=== PATIENT | male | born 1960 | race Caucasian/White ===

== ENCOUNTER 2016-08-24 03:02 | Emergency (ER) | payer OTHER ==
--- NOTE | 2016-08-24 03:10 | EDPHY ---
H & P HPI/ROS: HPI CHIEF COMPLAINT: Syncope versus seizure, marijuana intoxication HISTORY OF PRESENT ILLNESS: This patient very pleasant 56-year-old male significant past medical history for hypertension, presents emergency room by EMS after his called 911 after he had a questionable seizure activity in the bathroom versus syncope. Patient tells me that woke up around 130 in the morning he could not sleep he went to the bathroom sat down on the toilet to urinate, He laid his phone on the counter next to him, took multiple hits of his vape pen which has marijuana. Tells me the got rather high felt very lightheaded he went to stand up knocked the phone off of his vanity onto the ground he bent over from the seated position off the toilet to warehouse order picker the phone and got extremely lightheaded passed out fell and laid on the ground. Denies significant head strike. His did come in cm she did endorse a brief period of upper body myoclonic jerks and eye rolling in the back of his head. She states there was no postictal state he was not confused after this brief episode resolved. There was no biting of the tongue, no bowel bladder incontinence. Denies any trauma. Upon arrival here in the emergency room by EMS he has no complaints he does tell me that he does feel high slightly lightheaded. He denies chest pain, palpitation, shortness of breath he denies any preceding symptoms to this syncopal event except for lightheadedness. He does admit to a positive LOC. he also tells me that he did have multiple beers throughout the day today. He did exercise on a exercise bike. He tells me he did try to increase his fluid intake today. Of note he did tell me that he had 1 other episode of the same type of symptoms in this summer at a concert where was very hot out any smoked marijuana drink alcohol. Past Medical History: Hypertension Past Surgical History: Denies significant surgical history Social History: denies use of illicit drugs except for occasional marijuana use , he usually takes marijuana at of his vape pen to go to sleep, endorses occasional alcohol use Family History: Noncontributory ROS REVIEW OF SYSTEMS: A comprehensive 10 point review of systems is otherwise negative aside from elements mentioned in the history of present illness. Exam Constitutional appears well nontoxic, triage nursing summary reviewed, vital signs reviewed, awake/alert. Eyes normal conjunctivae and sclera, EOMI, PERRLA. HENT normal inspection, atraumatic, moist mucus membranes, no epistaxis, neck supple/ no meningismus, no raccoon eyes. Respiratory clear to auscultation bilaterally, normal breath sounds, no respiratory distress, no wheezing. Cardiovascular rate normal, regular rhythm, no murmur, no edema, distal pulses normal. Gastrointestinal soft, non-tender, no rebound, no guarding, normal bowel sounds, no distension, no pulsatile mass. Genitourinary no CVA tenderness. Musculoskeletal no midline vertebral tenderness, full range of motion, no calf swelling, no tenderness of extremities, no meningismus, good pulses, neurovascularly intact. Skin pink, warm, & dry, no rash, skin atraumatic. Neurologic awake, alert and oriented x 3, AAOx3, moves all 4 extremities equally, motor intact, sensory intact, CN II-XII intact, normal cerebellar, normal vision, normal speech. Psychiatric normal mood/affect. Heme/Lymph/Immune no lymphadenopathy. Differential Diagnosis: includes but is not limited to in a particular order, vasovagal syncope, orthostatic syncope, dehydration, marijuana intoxication, mixed duration syncope, cardiac arrhythmia, doubt ACS, doubt CVA, doubt intracranial bleed Medical Decision Making: this patient be worked up for seizure versus syncope patient had an EKG, chest x-ray, he will have an IV established will receive an IV fluid bolus will check electrolytes, he will be placed on diagnostic cardiac sonographer rule out arrhythmia Re-evaluation: EKG interpretation by me on record in [employer] system. Impression time of EKG 3:25 a.m. this is sinus rhythm rate of 75 there is left axis deviation present. Isolated subtle T-wave inversion in leads 3 AVF otherwise unremarkable , no ST elevation, no ST depression no signs of cardiac arrhythmia. Intervals appropriate. CT scan of the head without IV contrast The results of the study are negative for acute bleed or trauma or tumor. The study was read by Dr. Andersen I viewed the images myself on the PACS system. ED x-ray chest one view: Negative for acute cardiopulmonary disease. Image interpreted by myself. 0455: re-examination at this time this patient is resting comfortably no acute distress. He feels fine. He tells me he would like to go home and go to sleep. He denies chest pain or shortness of breath palpitations lightheadedness dizziness headache nausea vomiting at this time. He ambulated well throughout the emergency room without any difficulty specifically did not get lightheaded not develop chest pain or shortness of breath. He feels comfortable going home most likely cause of syncope is either micturition syncope with vasovagal syncope quick positional changes after getting up out of bed to use the bathroom , seated position while smoking marijuana dehydration alcohol this evening. He understands stay well-hydrated return to the emergency room if develops chest pain, shortness of breath, dizziness, lightheadedness, or he has a syncopal episode at home. Understands this been discussed with his at bedside. Source: Patient, EMS Constitutional: Initial Vital Signs Temperature (C) 36.5 C 08/24/16 03:05 Heart Rate 78 08/24/16 03:05 Respiratory Rate 18 08/24/16 03:05 Blood Pressure 149/68 H 08/24/16 03:05 O2 Sat (%) 98 08/24/16 03:05 O2 Delivery Mode Room Air O2 (L/minute) 2 Allergies/Adverse Reactions: No Known Allergies Allergy (Unverified 08/24/16 03:15) Home Medications: Medication Instructions Recorded Lisinopril-Hctz 10-12.5 mg Tab 08/24/16 Medical Decision Making - Data Points Laboratory Results: Laboratory Results 08/24/16 03:10 08/24/16 03:10 08/24/16 03:10 WBC 8.38 10^3/uL (3.80-9.50) RBC 5.15 10^6/uL (4.40-6.38) Hgb 16.5 g/dL (13.7-17.5) Hct 47.0 % (40.0-51.0) MCV 91.3 fL (81.5-99.8) MCH 32.0 pg (27.9-34.1) MCHC 35.1 g/dL (32.4-36.7) RDW 11.6 % (11.5-15.2) Plt Count 215 10^3/uL (150-400) MPV 9.5 fL (8.7-11.7) Neut % (Auto) 56.1 % (39.3-74.2) Lymph % (Auto) 33.2 % (15.0-45.0) [place] % (Auto) 7.5 % (4.5-13.0) Eos % (Auto) 1.6 % (0.6-7.6) Baso % (Auto) 1.1 % (0.3-1.7) Nucleat RBC Rel Count 0.0 % (0.0-0.2) Absolute Neuts (auto) 4.71 10^3/uL (1.70-6.50) Absolute Lymphs (auto) 2.78 10^3/uL (1.00-3.00) Absolute Monos (auto) 0.63 10^3/uL (0.30-0.80) Absolute Eos (auto) 0.13 10^3/uL (0.03-0.40) Absolute Basos (auto) 0.09 10^3/uL (0.02-0.10) Absolute Nucleated RBC 0.00 10^3/uL (0-0.01) Immature Gran % 0.5 % (0.0-1.1) Immature Gran # 0.04 10^3/uL (0.00-0.10) PT 12.7 SEC (12.0-15.0) INR 0.96 (0.83-1.16) APTT 24.6 SEC (23.0-38.0) Sodium 142 mEq/L (134-144) Potassium 4.1 mEq/L (3.5-5.2) Chloride 104 mEq/L (97-110) Carbon Dioxide 26 mEq/l (22-31) Anion Gap 12 mEq/L (8-16) BUN 22 mg/dL (7-23) Creatinine 1.3 mg/dL (0.7-1.3) Estimated GFR 57 Glucose 113 H mg/dL (70-100) Calcium 9.2 mg/dL (8.5-10.4) Magnesium 2.1 mg/dL (1.6-2.3) Total Bilirubin 0.6 mg/dL (0.1-1.4) Conjugated Bilirubin 0.3 mg/dL (0.0-0.5) Unconjugated Bilirubin 0.3 mg/dL (0.0-1.1) AST 26 IU/L (17-59) ALT 44 IU/L (21-72) Alkaline Phosphatase 71 IU/L (38-126) Creatine Kinase 282 H IU/L (0-224) CK-MB (CK-2) Fraction 3.96 H ng/mL (0-3.19) CK-MB (CK-2) % 1.4 % (0.0-4.0) Creatine Kinase Interp NEGATIVE (NEGATIVE) Troponin I 0.025 ng/mL (0-0.034) NT-Pro-B Natriuret Pep 437 H pg/mL (0-125) Total Protein 6.8 g/dL (6.3-8.2) Albumin 4.5 g/dL (3.5-5.0) Lipase 149.0 IU/L (23-300) Medications Given: Discontinued Medications Sodium Chloride (Ns) 1,000 mls @ 0 mls/hr IV ONCE ONE PRN Reason: As Directed Stop: 08/24/16 03:20 Last Admin: 08/24/16 03:21 Dose: 1,000 mls Departure - Departure Disposition: Home, Routine, Self-Care Clinical Impression: Dehydration Syncope Qualifiers: Syncope type: vasovagal syncope Qualifier Code: (R55) Syncope and collapse Cannabis intoxication Qualifiers: Complication of substance-induced condition: uncomplicated Qualifier Code: ( F12.920) Cannabis use, unspecified with intoxication, uncomplicated Condition: Good Instructions: Syncope (ED), Dehydration (ED) Additional Instructions: 1. Stay well-hydrated drink lots of fluids. 2. Refrain from smoking marijuana. 3. Return emergency room if you have another episode of passing out, chest pain , shortness of breath due to not feel well.
[2016-08-24 03:13] VITALS: RESP 18; TEMP 97.7
[2016-08-24] MEDS ORDERED: NS 1,000 ML IV ONE (03:19)
--- NOTE | 2016-08-24 03:28 | CPEKG ---
Heart Rate: 75 RR Interval: 800 P-R Interval: 180 QRSD Interval: 92 QT Interval: 424 QTC Interval: 474 P Ferguson: 33 QRS Ferguson: -34 T Wave Ferguson: 2 EKG Severity - ABNORMAL ECG - EKG Impression: SINUS RHYTHM EKG Impression: LEFT AXIS DEVIATION EKG Impression: CONSIDER ANTEROSEPTAL INFARCT EKG Impression: BORDERLINE T ABNORMALITIES, INFERIOR LEADS Electronically Signed By: Alcides Pena 25-Aug-2016 04:14:35
[2016-08-24 03:31] LABS: % IMMATURE GRANULYOCYTES 0.5 % (0.0-1.1); ABSOLUTE IMMATURE GRANULOCYTES 0.04 10^3/uL (0.00-0.10); ADD DIFF? NO; ADD MORPH? NO; ADD SCAN? NO; ATYPICAL LYMPHOCYTE FLAG 0 (0-99); FRAGMENT RBC FLAG 0 (0-99); HEMOGLOBIN 16.5 g/dL (13.7-17.5); LEFT SHIFT FLG 0 (0-99); LIPEMIA HEMOLYSIS FLAG 90 (0-99); MEAN CELL HEMOGLOBIN CONCENTR. 35.1 g/dL (32.4-36.7); MEAN CELL VOLUME 91.3 fL (81.5-99.8); MEAN PLATELET VOLUME 9.5 fL (8.7-11.7); PLATELET CLUMPS FLAG 0 (0-99); PLATELET COUNT 215 10^3/uL (150-400); RED BLOOD CELL COUNT 5.15 10^6/uL (4.40-6.38); RED CELL DISTRIBUTION WIDTH 11.6 % (11.5-15.2)
[2016-08-24 03:43] LABS: ALANINE AMINOTRANSFERASE 44 IU/L (21-72); ALBUMIN 4.5 g/dL (3.5-5.0); ALKALINE PHOSPHATASE 71 IU/L (38-126); ANION GAP 12 mEq/L (8-16); ASPARTATE AMINOTRANSFERASE 26 IU/L (17-59); BILIRUBIN,TOTAL 0.6 mg/dL (0.1-1.4); BILIRUBIN-CONJUGATED 0.3 mg/dL (0.0-0.5); BILIRUBIN-UNCONJUGATED 0.3 mg/dL (0.0-1.1); CALCIUM 9.2 mg/dL (8.5-10.4); CARBON DIOXIDE 26 mEq/l (22-31); CHLORIDE 104 mEq/L (97-110); CREATININE 1.3 mg/dL (0.7-1.3); GLOMERULAR FILTRATION RATE 57; GLUCOSE 113 mg/dL (70-100); MAGNESIUM 2.1 mg/dL (1.6-2.3); POTASSIUM 4.1 mEq/L (3.5-5.2); SODIUM 142 mEq/L (134-144); TOTAL PROTEIN 6.8 g/dL (6.3-8.2)
[2016-08-24 03:47] LABS: INR 0.96 (0.83-1.16); PROTIME(PATIENT) 12.7 SEC (12.0-15.0)
[2016-08-24 03:48] LABS: APTT 24.6 SEC (23.0-38.0)
[2016-08-24 03:55] LABS: CK-MB INTERPRETATION NEGATIVE (NEGATIVE); TROPONIN I 0.025 ng/mL (0-0.034)
[2016-08-24 03:57] LABS: CREATINE KINASE-MB FRACTION 3.96 ng/mL (0-3.19)
[2016-08-24 04:50] VITALS: O2SAT 97
[2016-08-24 04:59] VITALS: PULSE 82
[2016-08-24 05:06] VITALS: BP 145/102
--- NOTE | 2016-08-24 08:54 | DX ---
Portable chest x-ray 0327 hours. History: Chest pain. Findings: Heart size is upper limits of normal. Pulmonary vasculature is not significant engorged. Th ere is no consolidation, effusion, or pneumothorax. Mild scarring is suspected at the left base. Osse ous structures appeared be intact. Impression: 1. No active cardio pulmonary disease seen. 2. Mild scarring suspected at the left lung base. Consider followup PA and lateral chest x-ray [place] [facility] [place] for further characterization.
--- NOTE | 2016-08-24 14:11 | CT ---
CT Head (Without Contrast) August 24, 2016 Indication: Seizure versus syncope. Technique: Standard noncontrast head CT protocol utilizing 5 mm thick collimated slices and field of view of 23 cm. Dose reduction techniques were utilized. Findings: The brain is normally developed. No intracranial hemorrhage, mass lesion, swelling, or ext raaxial fluid collection. The ventricles are normal caliber and midline. The conn and white matter lopez s normal attenuation. No evidence of ischemia. The bones are unremarkable. No fracture. The paranasal sinuses are clear. Impressions: 1. Normal brain. No intracranial hemorrhage, mass, or ischemia. 2. No fracture. The study was performed as an emergency on-call case and discussed by telephone with Dr. Pena at 3 :45 a.m. The final interpretation is concordant with the original communication.
== END 2016-08-24 05:05 | disposition home or self-care (01) ==
LOC: EDUNIT#
DX: R55 Syncope and collapse (principal); E86.0 Dehydration; F12.920 Cannabis use, unspecified with intoxication, uncomplicated; I10 Essential (primary) hypertension